=== PATIENT | female | born 1980 | race Caucasian/White ===

== ENCOUNTER → 2019-11-05 | Outpatient (CLI) | payer OTHER ==
[~2019-11-05] MED LIST: METHACHOLINE KIT (J7674) INH ONE
--- NOTE | 2019-11-05 11:15 | PFTRPT ---
Height: 68.00 Inches Weight: 240.00 Lbs BSA: 2.21 Diagnosis: R06.00 DATE OF STUDY: 11/05/2019 ORDERED BY: EV Montgomery INTERPRETATION: Study of excellent technical quality. Under protocol, methacholine was administered. Even after a maximal dose of 25 mg or 188.875 CDUs, no provocation dose ever achieved. IMPRESSION: Negative methacholine challenge study. MTDD
== END ==
LOC: M CARPUL 10:18
PROVIDERS: ATTEND Physician Assistant
DX: R06.00 Dyspnea, unspecified (principal)
CPT/HCPCS: 94070; J7674